=== PATIENT | male | born 1960 | race Caucasian/White ===

== ENCOUNTER 2016-08-05 13:58 | Outpatient (CLI) | payer OTHER ==
--- NOTE | 2016-08-05 17:18 | ULT ---
ULTRASOUND RETROPERITONEUM COMPLETE: (RENAL) 08/05/16 HISTORY: 55-year-old male with family history of renal cell carcinoma. FINDINGS: Right kidney: 11.5 x 5.5 x 5 cm. Left kidney: 11 x 5 x 5.5 cm. Tiny 0.8 cm cyst in the right renal lower pole cortex. No other cystic or solid lesions identified bilaterally. Bilateral renal parenchymal echogenicity an d parenchymal thickness are normal. The prevoid urinary bladder volume is 35 mL. Postvoid volume is approximately 1 mL. IMPRESSION: 1. Tiny right renal cyst. 2. Otherwise negative. VANCE Bravo POS: STEF
== END 2016-08-05 13:59 | disposition home or self-care (01) ==
LOC: NAV ULT 13:58
PROVIDERS: ATTEND Family Medicine
DX: M54.5 Low back pain (principal); N28.1 Cyst of kidney, acquired; Z80.51 Family history of malignant neoplasm of kidney
CPT/HCPCS: 76770

== ENCOUNTER 2019-06-13 07:19 | Outpatient (CLI) | payer OTHER ==
--- NOTE | 2019-06-13 09:20 | ULT ---
US Renal Bilateral STANDARD: 06/13/2019 7:49 AM CLINICAL HISTORY: Family history of renal cell carcinoma. Right renal cyst. STUDY: Renal ultrasound COMPARISON: 08/05/2016 FINDINGS: Right kidney: Echogenicity: Normal. Masses/cysts: 6 mm cyst Hydronephrosis: None. Calcifications: None. Length: 10.2 cm Left kidney: Echogenicity: Normal. Masses/cysts: None. Hydronephrosis: None. Calcifications: None. Length: 10.8 cm Limited visualization of the urinary bladder is unremarkable. IMPRESSION: Right renal cyst
== END 2019-06-13 07:20 | disposition home or self-care (01) ==
LOC: NAV ULT 07:19
PROVIDERS: ATTEND Family Medicine
DX: Z80.51 Family history of malignant neoplasm of kidney (principal); N28.1 Cyst of kidney, acquired
CPT/HCPCS: 76770